=== PATIENT | female | born 1985 | race Caucasian/White ===

== ENCOUNTER 2024-05-24 19:56 | Inpatient (IN) | payer OTHER ==
[~2024-05-24] VITALS: Ht 160 cm; Wt 108.9 kg
[2024-05-24 20:11] VITALS: BP_SYST 98; PULSE 74; RESP 20; TEMP 98; O2SAT 98
[2024-05-24 22:25] LABS: BILIRUBIN,URINE NEGATIVE (NEGATIVE); BLOOD, URINE 1+ (NEGATIVE); COLOR,URINE YELLOW (YELLOW); GLUCOSE,URINE NEGATIVE (NEGATIVE); KETONES,URINE NEGATIVE (NEGATIVE); LEUKOCYTE ESTERASE ,URINE NEGATIVE (NEGATIVE); NITRITE, URINE NEGATIVE (NEGATIVE); PROTEIN URINE NEGATIVE (NEGATIVE); UROBILINOGEN,URINE 0.2 (0.2-1.0)
[2024-05-24] MEDS: METHYLPREDNISOLONE SOD SUCC 40 MG/ML VIAL IVP ONE (22:25)
[2024-05-24 22:26] LABS: CLARITY/URINE SLIGHTLY CLOUDY (CLEAR)
[2024-05-24] MEDS: ONDANSETRON HCL 4 MG/2 ML VIAL IVP ONE (22:29)
[2024-05-24 22:30] LABS: BACTERIA,URINE FEW /HPF (None Seen); WBC,URINE 0-3 /HPF (0-3)
[2024-05-24] MEDS: KETOROLAC TROMETHAMINE 30 MG VIAL IVP ONE (22:33)
[2024-05-24] MEDS: MORPHINE 4 MG INJ. 4 MG/ML VIAL IVP ONE ×2 (22:37→23:40)
[2024-05-24 22:42] LABS: BASOPHILS # (AUTO) 0.1 K/uL (0.0-0.2); BASOPHILS % (AUTO) 0.4 % (0.0-2.0); EOSINOPHILS % (AUTO) 0.1 % (0.0-4.0); HEMOGLOBIN 13.5 g/dL (12.0-16.0); LYMPHOCYTES # (AUTO) 1.9 K/uL (1.0-5.5); LYMPHOCYTES % (AUTO) 11.8 % (20.5-51.5); MEAN CORPUSCULAR HEMOGLOBIN 31 pg (27-31); MEAN CORPUSCULAR HGB CONC 35 % (32-36); MEAN CORPUSCULAR VOLUME 90 fL (79.0-98.0); MONOCYTES % (AUTO) 6.4 % (1.7-9.3); NEUTROPHILS # (AUTO) 13.1 K/uL (1.8-7.7); NEUTROPHILS % (AUTO) 81.3 % (40.0-70.0); PLATELET COUNT (AUTO) 313 K/uL (130-430); RED BLOOD CELL COUNT(AUTO) 4.34 MIL/uL (4.2-6.2); RED CELL DISTRIBUTION WIDTH 13.3 % (9.0-15.0); WHITE BLOOD COUNT (AUTO) 16.2 K/uL (4.8-10.8)
[2024-05-24 22:50] LABS: ALBUMIN 3.3 g/dL (3.4-4.8); CALCIUM 8.6 mg/dL (8.4-11.0); CREATININE 0.61 mg/dL (0.55-1.30); TOTAL BILIRUBIN 0.4 mg/dL (0.0-1.0); TOTAL PROTEIN, SERUM 7.5 g/dL (6.4-8.3)
[2024-05-25] MEDS ORDERED: OLAN1TAB3 ×2 (02:13→03:05)
[2024-05-25] MEDS ORDERED: HYDR-500 PO (02:13)
[2024-05-25] MEDS ORDERED: VIS25 PO (03:05)
[2024-05-25] MEDS: HYDROcodone/ACETAMIN 10-325 MG TAB PO PRN (03:10)
[2024-05-25] MEDS ORDERED: LORazepam 2 MG/ML VIAL IVP PRN (10:30)
[2024-05-25] MEDS ORDERED: ONDANSETRON HCL 4 MG/2 ML VIAL IVP PRN (10:30)
[2024-05-25 10:44] LABS: BASOPHILS % (AUTO) 0.1 % (0.0-2.0); HEMATOCRIT 39.1 % (36-48); HEMOGLOBIN 13.3 g/dL (12.0-16.0); LYMPHOCYTES # (AUTO) 1.1 K/uL (1.0-5.5); LYMPHOCYTES % (AUTO) 8.9 % (20.5-51.5); MEAN CORPUSCULAR HEMOGLOBIN 31 pg (27-31); MEAN CORPUSCULAR HGB CONC 34 % (32-36); MEAN CORPUSCULAR VOLUME 90 fL (79.0-98.0); MONOCYTES # (AUTO) 0.4 K/uL (0.0-1.0); MONOCYTES % (AUTO) 3.1 % (1.7-9.3); NEUTROPHILS % (AUTO) 87.9 % (40.0-70.0); PLATELET COUNT (AUTO) 322 K/uL (130-430); RED BLOOD CELL COUNT(AUTO) 4.34 MIL/uL (4.2-6.2); RED CELL DISTRIBUTION WIDTH 13.3 % (9.0-15.0); WHITE BLOOD COUNT (AUTO) 12.5 K/uL (4.8-10.8)
[2024-05-25 11:05] LABS: ALBUMIN 3.1 g/dL (3.4-4.8); CALCIUM 8.5 mg/dL (8.4-11.0); CREATININE 0.68 mg/dL (0.55-1.30); POTASSIUM 4.3 mmol/L (3.5-5.1); TOTAL BILIRUBIN 0.4 mg/dL (0.0-1.0); TOTAL PROTEIN, SERUM 7.2 g/dL (6.4-8.3)
[2024-05-25] MEDS: cefTRIAXone 1 GM IVPB PREMIX 50 ML IV ONE (11:39)
[2024-05-25] MEDS: NORMAL SALINE 5 ML DISP.SYRIN IVF SCH (14:16)
[2024-05-25 17:40] VITALS: BP_SYST 128; PULSE 63; RESP 16; TEMP 97.9
[2024-05-25 18:08] VITALS: O2SAT 96
[2024-05-25 20:00] VITALS: BP_SYST 121; PULSE 65; RESP 18; TEMP 97.9; O2SAT 96
[2024-05-26] VITALS: BP_SYST 102; PULSE 63; RESP 18; TEMP 97.7
[2024-05-26 04:42] LABS: BASOPHILS % (AUTO) 0.2 % (0.0-2.0); EOSINOPHILS % (AUTO) 0.3 % (0.0-4.0); HEMATOCRIT 39.3 % (36-48); HEMOGLOBIN 13.1 g/dL (12.0-16.0); LYMPHOCYTES # (AUTO) 3.7 K/uL (1.0-5.5); LYMPHOCYTES % (AUTO) 33.5 % (20.5-51.5); MEAN CORPUSCULAR HEMOGLOBIN 30 pg (27-31); MEAN CORPUSCULAR HGB CONC 33 % (32-36); MEAN CORPUSCULAR VOLUME 91 fL (79.0-98.0); MONOCYTES # (AUTO) 0.7 K/uL (0.0-1.0); MONOCYTES % (AUTO) 5.9 % (1.7-9.3); NEUTROPHILS # (AUTO) 6.6 K/uL (1.8-7.7); NEUTROPHILS % (AUTO) 60.1 % (40.0-70.0); PLATELET COUNT (AUTO) 294 K/uL (130-430); RED BLOOD CELL COUNT(AUTO) 4.33 MIL/uL (4.2-6.2); RED CELL DISTRIBUTION WIDTH 13.2 % (9.0-15.0); WHITE BLOOD COUNT (AUTO) 11.1 K/uL (4.8-10.8)
[2024-05-26 04:57] LABS: CREATININE 0.61 mg/dL (0.55-1.30)
[2024-05-26 08:01] VITALS: O2SAT 96
[2024-05-26 11:10] LABS: THYROID STIMULATING HORMONE 2.63 uIu/mL (0.36-3.74)
[2024-05-26 11:48] VITALS: BP_SYST 98; PULSE 42; RESP 18; TEMP 97.9; O2SAT 98
[2024-05-26] MEDS: cefTRIAXone 1 GM in D5W 50 ML IV SCH (13:16)
[2024-05-26] MEDS: KETOROLAC TROMETHAMINE 30 MG VIAL IVP SCH (13:19)
[2024-05-26 16:21] VITALS: BP_SYST 101; PULSE 83; RESP 16; TEMP 98.1; O2SAT 97
[2024-05-26 20:00] VITALS: BP_SYST 112; PULSE 62; RESP 18; TEMP 97.9; O2SAT 97
[2024-05-27] VITALS: BP_SYST 102; BP_SYST 103; PULSE 62; PULSE 72; RESP 18; TEMP 97.6; TEMP 98; O2SAT 97
[2024-05-27 05:25] LABS: BASOPHILS # (AUTO) 0.1 K/uL (0.0-0.2); BASOPHILS % (AUTO) 0.7 % (0.0-2.0); EOSINOPHILS # (AUTO) 0.4 K/uL (0.0-0.4); EOSINOPHILS % (AUTO) 3.8 % (0.0-4.0); HEMATOCRIT 41.3 % (36-48); HEMOGLOBIN 13.7 g/dL (12.0-16.0); LYMPHOCYTES # (AUTO) 3.3 K/uL (1.0-5.5); LYMPHOCYTES % (AUTO) 33.1 % (20.5-51.5); MEAN CORPUSCULAR HEMOGLOBIN 30 pg (27-31); MEAN CORPUSCULAR HGB CONC 33 % (32-36); MEAN CORPUSCULAR VOLUME 91 fL (79.0-98.0); MONOCYTES # (AUTO) 0.6 K/uL (0.0-1.0); MONOCYTES % (AUTO) 5.7 % (1.7-9.3); NEUTROPHILS # (AUTO) 5.7 K/uL (1.8-7.7); NEUTROPHILS % (AUTO) 56.7 % (40.0-70.0); PLATELET COUNT (AUTO) 295 K/uL (130-430); RED BLOOD CELL COUNT(AUTO) 4.54 MIL/uL (4.2-6.2); RED CELL DISTRIBUTION WIDTH 13.4 % (9.0-15.0); WHITE BLOOD COUNT (AUTO) 10.1 K/uL (4.8-10.8)
[2024-05-27 05:57] LABS: ALBUMIN 2.6 g/dL (3.4-4.8); CALCIUM 8.2 mg/dL (8.4-11.0); CREATININE 0.61 mg/dL (0.55-1.30); POTASSIUM 4.1 mmol/L (3.5-5.1); TOTAL BILIRUBIN 0.4 mg/dL (0.0-1.0); TOTAL PROTEIN, SERUM 6.5 g/dL (6.4-8.3)
[2024-05-27 08:26] VITALS: BP_SYST 104; PULSE 58; RESP 18; TEMP 97; O2SAT 96
[2024-05-27 12:30] VITALS: BP_SYST 103; PULSE 60; RESP 17; TEMP 97.4; O2SAT 97
[2024-05-27 16:06] VITALS: BP_SYST 105; PULSE 59; RESP 18; TEMP 97.2; O2SAT 96
[2024-05-27 17:16] LABS: BARBITURATE, URINE NEGATIVE (NEG <=200); BENZODIAZEPINE, URINE NEGATIVE (NEG <=150); CANNABINOID, URINE NEGATIVE (NEG <=50); COCAINE, URINE NEGATIVE (NEG <=150); METHAMPHETAMINES SCREEN,URINE NEGATIVE (NEG <=500); OPIATE, URINE POSITIVE (NEG <=100); PHENCYCLIDINE SCREEN,URINE NEGATIVE (NEG <=25); UR TRICYCLIC ANTIDEPRESSANTS NEGATIVE (NEG <=300); URINE AMPHETAMINE NEGATIVE (NEG <=500); URINE METHADONE NEGATIVE (NEG <=200); URINE OXYCODONE SCREEN NEGATIVE (NEG <=100)
[2024-05-27 20:22] VITALS: BP_SYST 102; PULSE 71; RESP 20; TEMP 98.2; O2SAT 96
[2024-05-27] MEDS: ACETAMINOPHEN 325 MG TABLET PO PRN (21:20)
[2024-05-28] MEDS: HYDROcodone/ACETAMIN 5-325 MG TAB (NORCO/ VICODIN) PO PRN (04:36)
[2024-05-28 05:12] LABS: ALBUMIN 2.8 g/dL (3.4-4.8); CALCIUM 8.4 mg/dL (8.4-11.0); CREATININE 0.53 mg/dL (0.55-1.30); TOTAL BILIRUBIN 0.6 mg/dL (0.0-1.0); TOTAL PROTEIN, SERUM 6.7 g/dL (6.4-8.3)
[2024-05-28 05:14] LABS: BASOPHILS % (AUTO) 0.5 % (0.0-2.0); EOSINOPHILS # (AUTO) 0.4 K/uL (0.0-0.4); EOSINOPHILS % (AUTO) 4.2 % (0.0-4.0); HEMATOCRIT 40.7 % (36-48); HEMOGLOBIN 13.5 g/dL (12.0-16.0); LYMPHOCYTES # (AUTO) 2.3 K/uL (1.0-5.5); LYMPHOCYTES % (AUTO) 26.8 % (20.5-51.5); MEAN CORPUSCULAR HEMOGLOBIN 30 pg (27-31); MEAN CORPUSCULAR HGB CONC 33 % (32-36); MEAN CORPUSCULAR VOLUME 91 fL (79.0-98.0); MONOCYTES # (AUTO) 0.5 K/uL (0.0-1.0); MONOCYTES % (AUTO) 5.4 % (1.7-9.3); NEUTROPHILS # (AUTO) 5.5 K/uL (1.8-7.7); NEUTROPHILS % (AUTO) 63.1 % (40.0-70.0); PLATELET COUNT (AUTO) 295 K/uL (130-430); RED CELL DISTRIBUTION WIDTH 13.1 % (9.0-15.0); WHITE BLOOD COUNT (AUTO) 8.7 K/uL (4.8-10.8)
[2024-05-28 05:47] LABS: PROTHROMBIN TIME 10.4 SECS (9.5-12.5)
[2024-05-28 06:09] LABS: TOTAL IRON BIND. CAPACITY 261 ug/dL (250-450)
[2024-05-28 08:32] VITALS: BP_SYST 102; PULSE 72; RESP 18; TEMP 98.2; O2SAT 95
[2024-05-28] MEDS: OLANZapine 10 MG TABLET PO ONE (11:38)
[2024-05-28 12:56] VITALS: BP_SYST 113; PULSE 95; RESP 18; TEMP 98.1; O2SAT 95
[2024-05-28] MEDS ORDERED: ZOLPIDEM TARTRATE 5 MG TABLET PO PRN (15:45)
[2024-05-28] MEDS: levoFLOXacin 750 MG TABLET PO ONE (17:45)
[2024-05-28] MEDS: MORPHINE 2 MG/ML INJ. SYRINGE IVP ONE (17:46)
[2024-05-28] MEDS: PANTOPRAZOLE SODIUM 40 MG TAB PO ONE (17:55)
[2024-05-28 21:30] VITALS: BP_SYST 103; PULSE 75; RESP 18; TEMP 98.1
[2024-05-28 22:00] VITALS: O2SAT 96
[2024-05-28] MEDS: HEPARIN SODIUM,PORCINE 5,000 UNITS/ML VIAL SUBCUT SCH (22:28)
[2024-05-29 00:15] VITALS: BP_SYST 103; PULSE 74; RESP 18; TEMP 98; O2SAT 96
[2024-05-29 07:05] LABS: BASOPHILS % (AUTO) 0.3 % (0.0-2.0); EOSINOPHILS # (AUTO) 0.5 K/uL (0.0-0.4); EOSINOPHILS % (AUTO) 4.9 % (0.0-4.0); HEMATOCRIT 37.8 % (36-48); HEMOGLOBIN 12.8 g/dL (12.0-16.0); LYMPHOCYTES # (AUTO) 2.4 K/uL (1.0-5.5); LYMPHOCYTES % (AUTO) 24.3 % (20.5-51.5); MEAN CORPUSCULAR HEMOGLOBIN 31 pg (27-31); MEAN CORPUSCULAR HGB CONC 34 % (32-36); MEAN CORPUSCULAR VOLUME 91 fL (79.0-98.0); MONOCYTES # (AUTO) 0.6 K/uL (0.0-1.0); MONOCYTES % (AUTO) 5.9 % (1.7-9.3); NEUTROPHILS # (AUTO) 6.3 K/uL (1.8-7.7); NEUTROPHILS % (AUTO) 64.6 % (40.0-70.0); PLATELET COUNT (AUTO) 282 K/uL (130-430); RED BLOOD CELL COUNT(AUTO) 4.18 MIL/uL (4.2-6.2); RED CELL DISTRIBUTION WIDTH 13.3 % (9.0-15.0); WHITE BLOOD COUNT (AUTO) 9.7 K/uL (4.8-10.8)
[2024-05-29 07:25] LABS: PROTHROMBIN TIME 10.4 SECS (9.5-12.5)
[2024-05-29 07:34] LABS: ALBUMIN 2.8 g/dL (3.4-4.8); CALCIUM 8.6 mg/dL (8.4-11.0); CREATININE 0.59 mg/dL (0.55-1.30); TOTAL BILIRUBIN 0.7 mg/dL (0.0-1.0); TOTAL PROTEIN, SERUM 6.7 g/dL (6.4-8.3)
[2024-05-29 08:45] VITALS: O2SAT 97
[2024-05-29] MEDS: PANTOPRAZOLE SODIUM 40 MG TAB PO SCH (09:57)
[2024-05-29] MEDS: OLANZapine 10 MG TABLET PO SCH (09:57)
[2024-05-29] MEDS ORDERED: levoFLOXacin 750 MG TABLET PO SCH (10:00)
[2024-05-29 12:00] VITALS: BP_SYST 108; PULSE 77; RESP 16; TEMP 98.4; O2SAT 97
[2024-05-29] MEDS: METOCLOPRAMIDE HCL 10 MG/2 ML VIAL IVP ONE (12:55)
[2024-05-29] MEDS: metroNIDAZOLE 500 MG TABLET PO SCH (14:00)
[2024-05-29] MEDS ORDERED: metroNIDAZOLE 500 mg/NS 100 ML IV SCH (14:00)
[2024-05-29] MEDS ORDERED: LR 1,000 ML IV SCH (17:45)
[2024-05-29] MEDS ORDERED: HYDROmorphone 1 MG/ML INJ. CARTRIDGE IVP PRN (17:45)
[2024-05-29] MEDS ORDERED: ONDANSETRON HCL 4 MG/2 ML VIAL IVP PRN ×2 (17:45→19:00)
[2024-05-29] MEDS ORDERED: MORPHINE 4 MG INJ. 4 MG/ML VIAL IVP PRN (17:45)
[2024-05-29 17:47] VITALS: BP_SYST 108; PULSE 77; O2SAT 97
[2024-05-29] MEDS ORDERED: ACETAMINOPHEN 325 MG TABLET PO PRN (19:00)
[2024-05-29] MEDS ORDERED: NALOXONE HCL 0.4 MG/ML AMP (NARCAN) IVP PRN ×2 (19:00)
[2024-05-29] MEDS ORDERED: HYDROcodone/ACETAMIN 5-325 MG TAB (NORCO/ VICODIN) PO PRN (19:00)
[2024-05-29] MEDS ORDERED: CEFAZOLIN 2 GM IVPB PREMIX 50 ML IV ONE (19:19)
[2024-05-29] MEDS: MORPHINE SULFATE 10 MG/ML VIAL ONE (20:10)
[2024-05-29] MEDS: HYDROmorphone 1 MG/ML INJ. CARTRIDGE IVP PRN (20:29)
[2024-05-29 21:00] VITALS: BP_SYST 115; PULSE 77; RESP 16; TEMP 97.7; O2SAT 94
[2024-05-29] MEDS ORDERED: CEFAZOLIN 1 GM IVPB PREMIX 100 ML IV ONE (21:56)
[2024-05-29 22:00] VITALS: O2SAT 94
[2024-05-29] MEDS: CEFAZOLIN 1 GM IVPB PREMIX 50 ML IV SCH (22:07)
[2024-05-30] VITALS (7 sets, daily range): BP systolic 109–129; PULSE 85–95; RESP 16–20; TEMP 97.8–99.7; O2SAT 93–100
[2024-05-30] MEDS: NACL 0.9% 1,000 ML IV SCH (00:02)
[2024-05-30] MEDS: metroNIDAZOLE 500 mg/NS 100 ML IV SCH (00:14)
[2024-05-30] MEDS: metroNIDAZOLE 500 mg/NS 100 ML IV ONE (00:15)
[2024-05-30 01:06] LABS: HEPATITIS A AB, IgM Negative (Negative); HEPATITIS B CORE AB, IgM Negative (Negative); HEPATITIS B SURFACE AG Negative (Negative); HEPATITIS C VIRUS AB Non Reactive (Non Reactive)
[2024-05-30] MEDS ORDERED: metroNIDAZOLE 500 mg/NS 100 ML IV ONE (04:07)
[2024-05-30 06:10] LABS: HEMATOCRIT 37.1 % (36-48); HEMOGLOBIN 12.4 g/dL (12.0-16.0); LYMPHOCYTES # (AUTO) 0.9 K/uL (1.0-5.5); LYMPHOCYTES % (AUTO) 5.3 % (20.5-51.5); MEAN CORPUSCULAR HEMOGLOBIN 30 pg (27-31); MEAN CORPUSCULAR HGB CONC 34 % (32-36); MEAN CORPUSCULAR VOLUME 91 fL (79.0-98.0); MONOCYTES # (AUTO) 0.7 K/uL (0.0-1.0); MONOCYTES % (AUTO) 4.1 % (1.7-9.3); NEUTROPHILS # (AUTO) 14.9 K/uL (1.8-7.7); NEUTROPHILS % (AUTO) 90.6 % (40.0-70.0); PLATELET COUNT (AUTO) 301 K/uL (130-430); RED BLOOD CELL COUNT(AUTO) 4.08 MIL/uL (4.2-6.2); RED CELL DISTRIBUTION WIDTH 13.3 % (9.0-15.0); WHITE BLOOD COUNT (AUTO) 16.4 K/uL (4.8-10.8)
[2024-05-30 06:32] LABS: CALCIUM 8.7 mg/dL (8.4-11.0); CREATININE 0.57 mg/dL (0.55-1.30); POTASSIUM 4.2 mmol/L (3.5-5.1); TOTAL BILIRUBIN 0.5 mg/dL (0.0-1.0); TOTAL PROTEIN, SERUM 7.1 g/dL (6.4-8.3)
[2024-05-30 09:07] LABS: ANTI-SMOOTH MUSCLE AB 4 Units (0-19)
[2024-05-31] MEDS: HYDROmorphone 1 MG/ML INJ. CARTRIDGE ONE (04:08)
[2024-05-31 06:15] LABS: BASOPHILS % (AUTO) 0.4 % (0.0-2.0); EOSINOPHILS # (AUTO) 0.2 K/uL (0.0-0.4); EOSINOPHILS % (AUTO) 1.4 % (0.0-4.0); HEMATOCRIT 35.5 % (36-48); HEMOGLOBIN 11.7 g/dL (12.0-16.0); LYMPHOCYTES % (AUTO) 27.1 % (20.5-51.5); MEAN CORPUSCULAR HEMOGLOBIN 30 pg (27-31); MEAN CORPUSCULAR HGB CONC 33 % (32-36); MEAN CORPUSCULAR VOLUME 91 fL (79.0-98.0); MONOCYTES % (AUTO) 8.9 % (1.7-9.3); NEUTROPHILS # (AUTO) 6.9 K/uL (1.8-7.7); NEUTROPHILS % (AUTO) 62.2 % (40.0-70.0); PLATELET COUNT (AUTO) 272 K/uL (130-430); RED CELL DISTRIBUTION WIDTH 13.6 % (9.0-15.0)
[2024-05-31 07:05] LABS: CALCIUM 8.4 mg/dL (8.4-11.0); POTASSIUM 3.7 mmol/L (3.5-5.1)
[2024-05-31 07:06] LABS: CREATININE 0.52 mg/dL (0.55-1.30)
[2024-05-31 08:00] VITALS: BP_SYST 114; PULSE 78; RESP 20; TEMP 97.7; O2SAT 92
[2024-05-31 09:12] VITALS: O2SAT 95
[2024-05-31 11:00] VITALS: BP_SYST 103; PULSE 63; RESP 16; TEMP 97.6; O2SAT 94
[2024-05-31 13:51] LABS: BILIRUBIN,DIRECT 0.1 mg/dL (0.0-0.3); TOTAL BILIRUBIN 0.4 mg/dL (0.0-1.0); TOTAL PROTEIN, SERUM 6.9 g/dL (6.4-8.3)
[2024-05-31] MEDS ORDERED: METR-154 PO (16:09)
[2024-05-31] MEDS ORDERED: HYDR-3917 PO (16:09)
[2024-05-31 16:23] VITALS: BP_SYST 110; PULSE 66; RESP 17; TEMP 98.2; O2SAT 94
[2024-05-31 18:29] VITALS: BP_SYST 110; PULSE 66; RESP 18; TEMP 98.2; O2SAT 94
[2024-06-01] MEDS ORDERED: LEVO750T64 PO (14:24)
[2024-06-01] MEDS ORDERED: OXYC-128 PO (14:29)
== END 2024-05-31 19:36 | disposition home health service (06) | DRG 263 ==
LOC: SED 19:56 → SMU 05-25 01:32 → STU 05-26 10:14 → SMU 05-28 15:45
PROVIDERS: ADMIT Preventive Medicine Preventive Medicine/Occupational Environmental Medicine; ATTEND Internal Medicine
PROC: 0FT44ZZ Resection of Gallbladder, Percutaneous Endoscopic Approach (ICD-10-PCS; principal; 2024-05-29 17:41)
DX: K81.0 Acute cholecystitis (principal); E44.1 Mild protein-calorie malnutrition; K82.1 Hydrops of gallbladder; E83.51 Hypocalcemia; M51.16 Intervertebral disc disorders with radiculopathy, lumbar region; E87.1 Hypo-osmolality and hyponatremia; E66.01 Morbid (severe) obesity due to excess calories; I49.3 Ventricular premature depolarization; E88.09 Other disorders of plasma-protein metabolism, not elsewhere classified; R73.9 Hyperglycemia, unspecified; D72.829 Elevated white blood cell count, unspecified; F17.200 Nicotine dependence, unspecified, uncomplicated; J45.909 Unspecified asthma, uncomplicated; Z68.41 Body mass index [BMI] 40.0-44.9, adult; Z79.899 Other long term (current) drug therapy
CPT/HCPCS: 36415; 72131; 72148; 74181; 76700; 78226; 80048; 80053; 80074; 80076; 80307; 81000; 81001; 81015; 82550; 83516; 83540; 83550; 83615; 83690; 83735; 84443; 84702; 85025; 85610; 85730; 86038; 87081; 87086; 88304; 93005; 96374; 96375; 97110-GP; 97112-GP; 97116-GP; 97530-GP; 99285; A9537; C1727; G0378; G0480; J0330; J0690; J0696; J1030; J1100; J1170; J1644; J1885; J1956; J2250; J2270; J2405; J2704; J2765; J3010; J3490; J7030; J7060; J7120

== ENCOUNTER 2024-06-03 16:09 | Emergency (ER) | payer OTHER ==
[~2024-06-03] VITALS: Ht 157.5 cm; Wt 108.9 kg
[~2024-06-03 16:09] MED LIST: HYDR-3917 PO; HYDR-500 PO; LEVO750T64 PO; METR-154 PO; OLAN1TAB3; OXYC-128 PO; VIS25 PO
[2024-06-03 16:30] VITALS: BP_SYST 117; PULSE 100; RESP 18; TEMP 98.9; O2SAT 96
[2024-06-03] MEDS ORDERED: OXYC-128 PO (17:33)
[2024-06-03 17:47] VITALS: BP_SYST 117; PULSE 100; RESP 18; TEMP 98.9; O2SAT 96
== END 2024-06-03 17:44 | disposition home or self-care (01) ==
LOC: SED 16:09
DX: G89.29 Other chronic pain (principal); M54.50 Low back pain, unspecified; Z76.0 Encounter for issue of repeat prescription; J45.909 Unspecified asthma, uncomplicated; Z79.899 Other long term (current) drug therapy; Z79.2 Long term (current) use of antibiotics
CPT/HCPCS: 99281

== ENCOUNTER 2024-06-05 21:40 | Emergency (ER) | payer OTHER ==
[~2024-06-05] VITALS: Ht 160 cm; Wt 108.9 kg
[2024-06-05 21:58] VITALS: BP_SYST 103; PULSE 87; RESP 18; TEMP 98; O2SAT 98
[2024-06-05 22:50] LABS: BILIRUBIN,URINE NEGATIVE (NEGATIVE); BLOOD, URINE 1+ (NEGATIVE); CLARITY/URINE CLEAR (CLEAR); COLOR,URINE YELLOW (YELLOW); GLUCOSE,URINE NEGATIVE (NEGATIVE); KETONES,URINE NEGATIVE (NEGATIVE); LEUKOCYTE ESTERASE ,URINE TRACE (NEGATIVE); NITRITE, URINE NEGATIVE (NEGATIVE); PROTEIN URINE NEGATIVE (NEGATIVE); UROBILINOGEN,URINE 0.2 (0.2-1.0)
[2024-06-05 22:58] LABS: BACTERIA,URINE FEW /HPF (None Seen); MUCUS,URINE 1+ /LPF (None Seen); YEAST,URINE Few /HPF (None Seen)
[2024-06-05 23:08] LABS: BARBITURATE, URINE NEGATIVE (NEG <=200); BENZODIAZEPINE, URINE NEGATIVE (NEG <=150); METHAMPHETAMINES SCREEN,URINE NEGATIVE (NEG <=500); URINE AMPHETAMINE NEGATIVE (NEG <=500); URINE METHADONE NEGATIVE (NEG <=200); URINE OXYCODONE SCREEN POSITIVE (NEG <=100)
[2024-06-05 23:09] LABS: CANNABINOID, URINE NEGATIVE (NEG <=50); COCAINE, URINE NEGATIVE (NEG <=150); OPIATE, URINE POSITIVE (NEG <=100); PHENCYCLIDINE SCREEN,URINE NEGATIVE (NEG <=25); UR TRICYCLIC ANTIDEPRESSANTS NEGATIVE (NEG <=300)
[2024-06-05] MEDS: MORPHINE 4 MG INJ. 4 MG/ML VIAL IM ONE (23:19)
[2024-06-05] MEDS: methocarbamoL 500 MG TABLET PO ONE (23:22)
[2024-06-05] MEDS: ACETAMINOPHEN 500 MG TABLET PO ONE (23:23)
[2024-06-05] MEDS: LIDOCAINE PATCH 5% 1 EA TP ONE (23:24)
[2024-06-06] MEDS ORDERED: CYCL10TA24 PO (01:19)
[2024-06-06] MEDS ORDERED: NAPR-690 PO (01:19)
[2024-06-06] MEDS ORDERED: LIDO700A30 TP (01:19)
[2024-06-06] MEDS ORDERED: CEPH-548 PO (01:43)
[2024-06-06 01:47] VITALS: BP_SYST 123; PULSE 61; RESP 18; TEMP 98.6; O2SAT 97
== END 2024-06-06 01:41 | disposition home or self-care (01) ==
LOC: SED 21:40
DX: M51.26 Other intervertebral disc displacement, lumbar region (principal); N39.0 Urinary tract infection, site not specified; J45.909 Unspecified asthma, uncomplicated; F25.9 Schizoaffective disorder, unspecified; Z79.899 Other long term (current) drug therapy; Z79.2 Long term (current) use of antibiotics
CPT/HCPCS: 99284; 80307; 81001; 87086; 81025; 96372; J2270; 81000; 81015